=== PATIENT | male | born 1990 | race African-American/Black ===

== ENCOUNTER 2025-10-06 11:10 | Emergency (ER) | payer MEDICAID ==
[~2025-10-06] VITALS: Ht 177.8 cm; Wt 70.5 kg
[2025-10-06 11:13] VITALS: TEMP 97.9
[2025-10-06] MEDS ORDERED: LEVE-71 PO ×2 (11:14→12:21)
[2025-10-06] MEDS: FLUORESCEIN SODIUM 1 MG STRIP OD ONE (11:58)
[2025-10-06] MEDS: GENTAMICIN SULFATE 0.3% OPHTHALMIC SOLUTION 5 ML OU ONE (11:58)
[2025-10-06] MEDS: ERYTHROMYCIN 0.5% 3.5 GM TUBE OPHTHALMIC OINTMENT OU ONE (12:21)
[2025-10-06 12:30] VITALS: BP 138/87; PULSE 73; RESP 18; O2SAT 100
[2025-10-06] MEDS ORDERED: ERYTHROMYCIN 0.5% 3.5 GM TUBE OPHTHALMIC OINTMENT OU ONE (21:00)
== END 2025-10-06 12:44 | disposition home or self-care (01) ==
LOC: EMS 11:10
DX: H10.89 Other conjunctivitis (principal); Z79.899 Other long term (current) drug therapy
CPT/HCPCS: 99284; Z7502; Z7610